=== PATIENT | male | born 1965 | race Caucasian/White ===

== ENCOUNTER → 2018-02-09 | Outpatient (CLI) | payer OTHER | END | disposition home or self-care (01) | LOC: PCVCIMAG 14:38 | DX: I25.10 Atherosclerotic heart disease of native coronary artery without angina pectoris (principal); I10 Essential (primary) hypertension | CPT/HCPCS: 93325; 93351 ==

== ENCOUNTER → 2019-07-04 | Outpatient (CLI) | payer OTHER ==
--- NOTE | 2019-07-04 13:22 | PCVCIMAG ---
APPROVED REPORT Study performed: 07/04/2019 11:07:37 EXAM: Comprehensive 2D, Doppler, and color-flow Echocardiogram Patient Location: Echo lab Status: routine BSA: 2.15 HR: 58 bpmBP: 138/100 mmHg Rhythm: NSR Other Information Study Quality: Technically Difficult Risk Factors: Cardiac Risk Factors: HTN, Hyperlipidemia Indications CAD Stent, [employer] Shunt, RIRI, Hyperlipidemia 2D Dimensions IVSd: 21.32 (7-11mm)LVOT Diam: 20.44 (18-24mm) LVDd: 31.13 mm PWd: 12.86 (7-11mm)Ascending Ao: 41.31 (22-36mm) LVDs: 26.47 (25-40mm) Left Atrium: 31.25 (27-40mm) Aortic Root: 36.11 mm LV Single Plane 4CH: 51.25 % LV Single Plane 2CH: 58.27 % Biplane EF: 55.5 % Volumes Left Atrial Volume (Systole) Single Plane 4CH: 21.48 mLSingle Plane 2CH: 30.23 mL LA ESV Index: 12.00 mL/m2 Aortic Valve AoV Peak Edin.: 1.19 m/s AO Peak Gr.: 5.63 mmHgLVOT Max P.22 mmHg LVOT Max V: 0.90 m/s YARELIS Vmax: 2.48 cm2 Mitral Valve E/A Ratio: 1.1 MV Decel. Time: 216.28 ms MV E Max Edin.: 0.69 m/s MV A Edin.: 0.62 m/s TDI E/Lateral E': 8.63E/Medial E': 11.50 Medial E' Edin.: 0.06 m/s Lateral E' Edin.: 0.08 m/s Pulmonary Valve PV Peak Gr.: 4.01 mmHg Pulmonary Vein P Vein S: 0.40 m/sP Vein A: 0.31 m/s P Vein D: 0.28 m/sP Vein A Dur.: 83.0 msec P Vein S/D Ratio: 1.43 Tricuspid Valve TR Peak Edin.: 2.26 m/s TR Peak Gr.: 20.39 mmHg Left Ventricle The left ventricle is normal size. There is normal LV segmental wall motion. There is normal left ventricular wall thickness. Left ventricular systolic function is normal. The left ventricular ejection fraction is within the normal range. LVEF is 55%. Right Ventricle The right ventricle is normal size. The right ventricular systolic function is normal. Atria The left atrium size is normal. The right atrium size is normal. Aortic Valve The aortic valve is normal in structure. No aortic regurgitation is present. There is no aortic valvular stenosis. Mitral Valve The mitral valve is normal in structure. There is no mitral valve regurgitation noted. No evidence of mitral valve stenosis. Tricuspid Valve The tricuspid valve is normal in structure. Trace tricuspid regurgitation. Pulmonary artery pressure is 27mmHg. Pulmonic Valve The pulmonary valve is normal in structure. There is no pulmonic valvular regurgitation. Great Vessels The aortic root is normal in size. The ascending aorta is borderline dilated measuring 4.1cm. IVC is normal in size and collapses >50% with inspiration. Pericardium There is no pericardial effusion. <Conclusion> The left ventricle is normal size. LVEF is 55%. The right ventricle is normal size. The left atrium size is normal. The aortic valve is normal in structure. There is no mitral valve regurgitation noted. Trace tricuspid regurgitation. Pulmonary artery pressure is 27mmHg. The aortic root is normal in size. The ascending aorta is borderline dilated measuring 4.1cm. There is no pericardial effusion. The left ventricle is normal size. LVEF is 55%. The right ventricle is normal size. The left atrium size is normal. The aortic valve is normal in structure. There is no mitral valve regurgitation noted. Trace tricuspid regurgitation. Pulmonary artery pressure is 27mmHg. The aortic root is normal in size. The ascending aorta is borderline dilated measuring 4.1cm. There is no pericardial effusion.
== END | disposition home or self-care (01) ==
LOC: PCVCIMAG 11:02
PROVIDERS: ATTEND Internal Medicine Cardiovascular Disease
DX: I25.10 Atherosclerotic heart disease of native coronary artery without angina pectoris (principal); I25.5 Ischemic cardiomyopathy; I10 Essential (primary) hypertension; E78.5 Hyperlipidemia, unspecified; Z95.5 Presence of coronary angioplasty implant and graft; Z88.0 Allergy status to penicillin; Z88.1 Allergy status to other antibiotic agents
CPT/HCPCS: 93306